=== PATIENT | male | born 1950 | race Caucasian/White ===

== ENCOUNTER 2021-06-16 20:32 | Inpatient (IN) | payer OTHER ==
[2021-06-16] MEDS ORDERED: NA CHLORIDE 0.9% 500 ML ONE (23:35)
[2021-06-16] MEDS ORDERED: FOLIC ACID 5 MG/ML VIAL ONE (23:37)
[2021-06-17 00:06] LABS: Absolute Lymphocytes (CBC) 1.2 K/uL (0.7-4.9); Hematocrit 45.5 % (39.6-49.0); Lymphocytes % 10.6 % (15.3-44.8); RBC Red Blood Cell Count 5.25 M/uL (4.33-5.43)
[2021-06-17 00:07] LABS: Protime INR 0.86
[2021-06-17 00:20] LABS: ALT/SGPT 15 U/L (12-78); AST/SGOT 13 U/L (15-37); Albumin 3.2 g/dL (3.4-5.0); Alkaline Phosphatase 83 U/L (45-117); BUN Blood Urea Nitrogen 12 mg/dL (7-18); Bicarbonate 29 mmol/L (21-32); Bilirubin Direct 0.2 mg/dL (0-0.2); Bilirubin Total 0.8 mg/dL (0.2-1.0); Glucose Level 103 mg/dL (74-106); Lipase 49 U/L (73-393); Magnesium 2.3 mg/dL (1.8-2.4); NT PRO-BNP 2650 pg/mL (<125); Protein, Total 7.5 g/dL (6.4-8.2); Sodium Level 130 mmol/L (136-145); Troponin (Emerg Dept Use Only) < 0.02 ng/mL (0.0-0.045)
--- NOTE | 2021-06-17 00:54 | ER ---
Nurse's Notes [facility] Jonathan Name: Jose Ivy Sr Age: 70 yrs Sex: Male : 1950 Arrival Date: 06/16/2021 Time: 20:36 Bed 3 Private MD: Diagnosis: Dizziness and giddiness;Nausea;Cerebellar stroke syndrome Presentation: 06/16 21:17 Chief complaint: Patient states: pt states that he is continuously dizzy all the time lg3 and all of a sudden "just took a fall". fell took place roughly around 1750. denies tripping over anything. denies hitting head. small abrasion to right elbow and top of right hand. applied non stick dressing to both areas. pt states that he did vomit yesterday due to nausea from not eating due to lack of appetite. Coronavirus screen: Client denies travel out of the [place] in the last 14 days. At this time, the client does not indicate any symptoms associated with coronavirus-19. Ebola Screen: No symptoms or risks identified at this time. Initial Sepsis Screen: Does the patient meet any 2 criteria? No. Patient's initial sepsis screen is negative. Does the patient have a suspected source of infection? No. Patient's initial sepsis screen is negative. Risk Assessment: Do you want to hurt yourself or someone else? Patient reports no desire to harm self or others. Onset of symptoms. 21:17 Method Of Arrival: Wheelchair lg3 21:17 Acuity: EDEN 3 lg3 Triage Assessment: 21:25 General: Appears in no apparent distress. comfortable, Behavior is calm, cooperative. lg3 Pain: Denies pain. Neuro: No deficits noted. Level of Consciousness is awake, alert, obeys commands, Oriented to person, place, time, situation, Contact Lens Manufacturer are equal bilaterally Speech is normal, Facial symmetry appears normal. Cardiovascular: Capillary refill < 3 seconds Patient's skin is warm and dry. Respiratory: Airway is patent Trachea midline Respiratory effort is even, unlabored, Respiratory pattern is regular, symmetrical. GI: No signs and/or symptoms were reported involving the gastrointestinal system. : No signs and/or symptoms were reported regarding the genitourinary system. Derm: Skin is thin, with poor turgor has skin tears on right hand. Musculoskeletal: Injury Description: Abrasion sustained to right elbow. 06/17 01:29 GI: Reports nausea, vomiting. sm5 Historical: - Allergies: 06/16 21:25 No Known Allergies; lg3 - PMHx: 21:25 Heart disease; cva; lg3 - PSHx: 21:25 cardiac stent; lg3 - Immunization history:: Adult Immunizations up to date, Client reports receiving the 2nd dose of the Covid vaccine, Moderna x3. - Social history:: Smoking status: Patient reports the use of cigarette tobacco products, smokes two packs cigarettes per day. Screenin/10 01:28 Abuse screen: Denies threats or abuse. Denies injuries from another. Nutritional sm5 screening: No deficits noted. Tuberculosis screening: No symptoms or risk factors identified. Fall Risk Fall in past 12 months (25 points). Secondary diagnosis (15 points) CVA, IV access (20 points). Ambulatory Aid- None/Bed Rest/Nurse Assist (0 pts). Gait- Normal/Bed Rest/Wheelchair (0 pts) Mental Status- Oriented to own ability (0 pts). Total [place] Fall Scale indicates High Risk Score (45 or more points). Fall prevention measures have been instituted. Side Rails Up X 2 Placed Close to Nursing Station Frequent Obs/Assessments Occuring. 02:16 The patient has not been NPO before screening. The patient is alert, able to follow sm5 commands. The patient does not exhibit slurred or garbled speech The patient is not exhibiting difficulty speaking. The patient does not exhibit difficulty understanding words. The patient is able to swallow own secretions with no drooling or need for suction. Patient tolerated one teaspoon of water. No drooling, immediate coughing, gurgling, or clearing of the throat was noted. The patient tolerated 90mL of water. No drooling, immediate coughing, gurgling, or clearing of the throat was noted. The patient passed the bedside swallow screening. Oral medications may be given as ordered. Contact Physician for further diet orders. Assessment: 06/16 23:30 General: Appears in no apparent distress. Behavior is calm, cooperative. Neuro: No sm5 deficits noted. Level of Consciousness is awake, alert, Oriented to person, place, time, situation. Cardiovascular: No deficits noted. Capillary refill < 3 seconds Patient's skin is warm and dry. Respiratory: No deficits noted. Airway is patent Trachea midline Respiratory effort is even, unlabored. GI: Abdomen is flat, non-distended, Reports vomiting. 06/17 00:30 Reassessment: No changes from previously documented assessment. Patient and/or family 5 updated on plan of care and expected duration. Pain level reassessed. Patient is alert, oriented x 3, equal unlabored respirations, skin warm/dry/pink. 01:31 Reassessment: No changes from previously documented assessment. 5 Vital Signs: 06/16 21:17 BP 165 / 62; Pulse 67; Resp 16; Temp 98.3; Pulse Ox 99% on R/A; Weight 68.04 kg (R); lg3 Height 5 ft. 9 in. (175.26 cm) (R); Pain 0/10; 23:30 BP 182 / 81; Pulse 63; Resp 19; Pulse Ox 98% on R/A; sm5 06/17 00:30 BP 181 / 70; Pulse 69; Resp 20; Pulse Ox 97% on R/A; sm5 00:30 BP 166 / 93; Pulse 66; Resp 19; Pulse Ox 95% ; sm5 06/16 21:17 Body Mass Index 22.15 (68.04 kg, 175.26 cm) lg3 Avril Coma Score: 06/16 23:31 Eye Response: spontaneous(4). Verbal Response: oriented(5). Motor Response: obeys sm5 commands(6). Total: 15. 06/17 00:30 Eye Response: spontaneous(4). Verbal Response: oriented(5). Motor Response: obeys sm5 commands(6). Total: 15. NIH Stroke Scale Scores: 06/16 23:27 NIHSS Score: 0 sundeep 06/17 02:16 NIHSS Score: 0 5 ED Course: 06/16 20:36 Patient arrived in ED. bp1 21:25 Triage completed. lg3 21:25 Arm band placed on Patient notified of wait time. Bandage applied. lg3 22:57 Nikhil Fontana MD is Attending Physician. sundeep 23:26 Valorie Parra, LASHAWN is Primary Nurse. sm5 23:40 Inserted saline lock: 20 gauge in left antecubital area, using aseptic technique. Blood sm5 collected. 23:47 XRAY Chest (1 view) Sent. tw5 23:47 Basic Metabolic Panel Sent. tw5 23:47 LFT's Sent. 23:47 CBC with Diff Sent. 23:47 Magnesium Sent. 23:47 NT PRO-BNP Sent. 23:47 PT-INR Sent. 23:47 Troponin (emerg Dept Use Only) Sent. 06/17 00:10 XRAY Chest (1 view) In Process Unspecified. EDMS 00:44 US Carotid Artery Bilateral In Process Unspecified. EDMS 00:52 Herman Schilling MD is Hospitalizing Provider. sundeep 01:10 CT Head Brain wo Cont In Process Unspecified. EDMS 01:29 Patient has correct armband on for positive identification. Bed in low position. Call [facility] light in reach. Side rails up X2. 01:29 No provider procedures requiring assistance completed. [facility] 07:28 Primary Nurse role handed off by Valorie Parra RN 07:32 Jewel Breen, LASHAWN is Primary Nurse. jd3 Administered Medications: 06/16 23:46 Drug: NS 0.9% 1000 ml Route: IV; Rate: 125 ml/hr; Site: left antecubital; 23:47 Drug: NS 0.9% 500 ml Route: IV; Rate: bolus; Site: left antecubital; tw 23:50 Follow up: IV Status: Completed infusion; IV Intake: 500ml 5 23:47 Drug: foLIC Acid 1 mg Route: IVPB; Site: left antecubital; tw06/17 00:00 Follow up: IV Status: Completed infusion; IV Intake: 0.2ml [facility] 02:14 Drug: Aspirin Chewable Tablet 162 mg Route: PO; 5 03:02 Drug: PlaVIX (clopidogrel) 75 mg Route: PO; 5 Intake: 06/16 23:50 IV: 500ml; Total: 500ml. 5 06/17 00:00 IV: 0ml; Total: 500ml. [facility] Outcome: 00:53 Decision to Hospitalize by Provider. sundeep 10:21 Patient left the ED. jd3 NIH Stroke Scale - NIH Stroke Score Date: 06/16/2021 Time: 23:27 Total Score = 0 1a. Level of Consciousness (LOC) - 0(Alert) 1b. Level of Consciousness (LOC) (Month \\T\\ Age) - 0(Both) 1c. LOC Commands (Open \\T\\ Closes Eyes/Automobile Tester) - 0(Both) 2. Best Gaze (Lateral Gaze Paresis) - 0(Normal) 3. Visual Field Loss - 0(No visual loss) 4. Facial Palsy - 0(Normal) 5a. Left Arm: Motor (10-second hold) - 0(No drift) 5b. Right Arm: Motor (10-second hold) - 0(No drift) 6a. Left Leg: Motor (5-second hold - always test supine) - 0(No drift) 6b. Right Leg: Motor (5-second hold - always test supine) - 0(No drift) 7. Limb Ataxia (finger/nose \\T\\ heel/garay - test with eyes open) - 0(Absent) 8. Sensory Loss (pinprick arms/legs/face) - 0(Normal) 9. Best Language: Aphasia (description/naming/reading) - 0(No aphasia) 10. Dysarthria (speech clarity - read or repeat words) - 0(Normal) 11. Extinction and Inattention (visual/tactile/auditory/spatial/personal) - 0(No abnormality) Initials: [facility] NIH Stroke Scale - NIH Stroke Score Date: 06/17/2021 Time: 02:16 Total Score = 0 1a. Level of Consciousness (LOC) - 0(Alert) 1b. Level of Consciousness (LOC) (Month \\T\\ Age) - 0(Both) 1c. LOC Commands (Open \\T\\ Closes Eyes/Automobile Tester) - 0(Both) 2. Best Gaze (Lateral Gaze Paresis) - 0(Normal) 3. Visual Field Loss - 0(No visual loss) 4. Facial Palsy - 0(Normal) 5a. Left Arm: Motor (10-second hold) - 0(No drift) 5b. Right Arm: Motor (10-second hold) - 0(No drift) 6a. Left Leg: Motor (5-second hold - always test supine) - 0(No drift) 6b. Right Leg: Motor (5-second hold - always test supine) - 0(No drift) 7. Limb Ataxia (finger/nose \\T\\ heel/garay - test with eyes open) - 0(Absent) 8. Sensory Loss (pinprick arms/legs/face) - 0(Normal) 9. Best Language: Aphasia (description/naming/reading) - 0(No aphasia) 10. Dysarthria (speech clarity - read or repeat words) - 0(Normal) 11. Extinction and Inattention (visual/tactile/auditory/spatial/personal) - 0(No abnormality) Initials: sm5 Signatures: Dispatcher [employer] Qian Wen Corey, MD MD cha Davies, Jonathon RN RN Emilee Stearns RN RN lg3 Jacquie Helms Tiffany 5 Valorie Parra RN RN sm5 Corrections: (The following items were deleted from the chart) 06/16 21:28 21:25 PMHx: cardiac stent; lg3 lg3
--- NOTE | 2021-06-17 00:54 | EDPHYS ---
Physician Documentation [facility] Jonathan Name: Jose Ivy Sr Age: 70 yrs Sex: Male : 1950 Arrival Date: 06/16/2021 Time: 20:36 Bed 3 Private MD: MYRIAM Physician Nikhil Fontana HPI: 06/16 23:26 This 70 yrs old Male presents to ER via Wheelchair with complaints of sundeep Vomiting, Recent falls. 23:26 The patient presents to the emergency department with nausea, that is mild. Onset: The sundeep symptoms/episode began/occurred 3 day(s) ago. Possible causes: unknown. Historical: - Allergies: 21:25 No Known Allergies; lg3 - PMHx: 21:25 Heart disease; cva; lg3 - PSHx: 21:25 cardiac stent; lg3 - Immunization history:: Adult Immunizations up to date, Client reports receiving the 2nd dose of the Covid vaccine, Moderna x3. - Social history:: Smoking status: Patient reports the use of cigarette tobacco products, smokes two packs cigarettes per day. ROS: 23:27 Constitutional: Negative for fever, chills, and weight loss, Eyes: Negative for injury, sundeep pain, redness, and discharge, ENT: Negative for injury, pain, and discharge, Neck: Negative for injury, pain, and swelling, Cardiovascular: Negative for chest pain, palpitations, and edema, Respiratory: Negative for shortness of breath, cough, wheezing, and pleuritic chest pain, Abdomen/GI: Negative for abdominal pain, nausea, vomiting, diarrhea, and constipation, Back: Negative for injury and pain, : Negative for injury, bleeding, discharge, and swelling, MS/Extremity: Negative for injury and deformity, Skin: Negative for injury, rash, and discoloration, Psych: Negative for depression, anxiety, suicide ideation, homicidal ideation, and hallucinations, Allergy/Immunology: Negative for hives, rash, and allergies, Endocrine: Negative for neck swelling, polydipsia, polyuria, polyphagia, and marked weight changes, Hematologic/Lymphatic: Negative for swollen nodes, abnormal bleeding, and unusual bruising. 23:27 Neuro: Positive for dizziness, gait disturbance, weakness. Exam: 23:27 Constitutional: This is a well developed, well nourished patient who is awake, alert, sundeep and in no acute distress. Head/Face: Normocephalic, atraumatic. Eyes: Pupils equal round and reactive to light, extra-ocular motions intact. Lids and lashes normal. Conjunctiva and sclera are non-icteric and not injected. Cornea within normal limits. Periorbital areas with no swelling, redness, or edema. ENT: Nares patent. No nasal discharge, no septal abnormalities noted. Tympanic membranes are normal and external auditory canals are clear. Oropharynx with no redness, swelling, or masses, exudates, or evidence of obstruction, uvula midline. Mucous membranes moist. Neck: Trachea midline, no thyromegaly or masses palpated, and no cervical lymphadenopathy. Supple, full range of motion without nuchal rigidity, or vertebral point tenderness. No Meningismus. Chest/axilla: Normal chest wall appearance and motion. Nontender with no deformity. No lesions are appreciated. Cardiovascular: Regular rate and rhythm with a normal S1 and S2. No gallops, murmurs, or rubs. Normal PMI, no JVD. No pulse deficits. Respiratory: Lungs have equal breath sounds bilaterally, clear to auscultation and percussion. No rales, rhonchi or wheezes noted. No increased work of breathing, no retractions or nasal flaring. Abdomen/GI: Soft, non-tender, with normal bowel sounds. No distension or tympany. No guarding or rebound. No evidence of tenderness throughout. Back: No spinal tenderness. No costovertebral tenderness. Full range of motion. Male : Normal genitalia with no discharge or lesions. Skin: Warm, dry with normal turgor. Normal color with no rashes, no lesions, and no evidence of cellulitis. MS/ Extremity: Pulses equal, no cyanosis. Neurovascular intact. Full, normal range of motion. Neuro: Awake and alert, GCS 15, oriented to person, place, time, and situation. Cranial nerves II-XII grossly intact. Motor strength 5/5 in all extremities. Sensory grossly intact. Cerebellar exam normal. Normal gait. Psych: Awake, alert, with orientation to person, place and time. Behavior, mood, and affect are within normal limits. 23:39 ECG was reviewed by the Attending Physician. [facility] Vital Signs: 21:17 BP 165 / 62; Pulse 67; Resp 16; Temp 98.3; Pulse Ox 99% on R/A; Weight 68.04 kg (R); lg3 Height 5 ft. 9 in. (175.26 cm) (R); Pain 0/10; 23:30 BP 182 / 81; Pulse 63; Resp 19; Pulse Ox 98% on R/A; sm5 06/17 00:30 BP 181 / 70; Pulse 69; Resp 20; Pulse Ox 97% on R/A; sm5 00:30 BP 166 / 93; Pulse 66; Resp 19; Pulse Ox 95% ; sm5 06/16 21:17 Body Mass Index 22.15 (68.04 kg, 175.26 cm) lg3 NIH Stroke Scale Scores: 06/16 23:27 NIHSS Score: 0 sundeep 06/17 02:16 NIHSS Score: 0 sm5 [place] Coma Score: 06/16 23:31 Eye Response: spontaneous(4). Verbal Response: oriented(5). Motor Response: obeys sm5 commands(6). Total: 15. 06/17 00:30 Eye Response: spontaneous(4). Verbal Response: oriented(5). Motor Response: obeys sm5 commands(6). Total: 15. MDM: 06/16 22:57 Patient medically screened. sundeep 23:35 Differential diagnosis: gastritis. Differential diagnosis: cardiac arrhythmia, CVA, sundeep generalized weakness, hypovolemia, idiopathic dizziness, near-syncope, sepsis, syncope, TIA, vertigo. Data reviewed: vital signs, nurses notes, lab test result(s), EKG, radiologic studies, CT scan, doppler, plain films. Data interpreted: hall monitor: rate is 67 beats/min, rhythm is regular, Pulse oximetry: on room air is 99 %. Test interpretation: by ED physician or midlevel provider: ECG, plain radiologic studies. Counseling: I had a detailed discussion with the patient and/or guardian regarding: the historical points, exam findings, and any diagnostic results supporting the discharge/admit diagnosis, lab results, radiology results, the need for further work-up and treatment in the hospital. 06/16 23:24 Order name: Basic Metabolic Panel; Complete Time: 00:47 sundeep 06/16 23:24 Order name: CBC with Diff; Complete Time: 00:47 sundeep 06/16 23:24 Order name: LFT's; Complete Time: 00:47 sundeep 06/16 23:24 Order name: Magnesium; Complete Time: 00:47 [facility] 06/16 23:24 Order name: NT PRO-BNP; Complete Time: 00:47 [facility] 06/16 23:24 Order name: PT-INR; Complete Time: 00:47 [facility] 06/16 23:24 Order name: Troponin (emerg Dept Use Only); Complete Time: 00:47 [facility] 06/16 23:24 Order name: XRAY Chest (1 view) [facility] 06/16 23:24 Order name: Lipase; Complete Time: 00:47 [facility] 06/16 23:24 Order name: CT Head Brain wo Cont [facility] 06/16 23:24 Order name: US Carotid Artery Bilateral [facility] 06/17 02:01 Order name: CT Head Angio [facility] 06/17 02:22 Order name: COVID-19/FLU A+B/RSV (Document "Date of Onset" if Symptomatic) cs9 06/17 03:10 Order name: Urine Dipstick-Ancillary EDMS 06/16 23:24 Order name: EKG; Complete Time: 23:25 [facility] 06/16 23:24 Order name: Cardiac monitoring; Complete Time: 23:26 [facility] 06/16 23:24 Order name: EKG - Nurse/Tech; Complete Time: 23:26 [facility] 06/16 23:24 Order name: IV Saline Lock; Complete Time: 23:26 [facility] 06/16 23:24 Order name: Labs collected and sent; Complete Time: 23:47 [facility] 06/16 23:24 Order name: O2 Per Protocol; Complete Time: 23:26 [facility] 06/16 23:24 Order name: O2 Sat Monitoring; Complete Time: 23:26 [facility] 06/17 02:01 Order name: CT Neck Angio [facility] 06/17 08:48 Order name: CT EDMS EC:39 Rate is 74 beats/min. Rhythm is regular. QRS [place] is Normal. MS interval is normal. QRS sundeep interval is normal. QT interval is normal. No Q waves. T waves are Normal. No ST changes noted. Clinical impression: NSR w/ Non-specific ST/T Changes and No evidence of ischemia. Interpreted by me. Reviewed by me. Administered Medications: 23:46 Drug: NS 0.9% 1000 ml Route: IV; Rate: 125 ml/hr; Site: left antecubital; tw5 23:47 Drug: NS 0.9% 500 ml Route: IV; Rate: bolus; Site: left antecubital; tw5 23:50 Follow up: IV Status: Completed infusion; IV Intake: 500ml 5 23:47 Drug: foLIC Acid 1 mg Route: IVPB; Site: left antecubital; tw5 06/17 00:00 Follow up: IV Status: Completed infusion; IV Intake: 0.2ml 5 02:14 Drug: Aspirin Chewable Tablet 162 mg Route: PO; sm5 03:02 Drug: PlaVIX (clopidogrel) 75 mg Route: PO; 5 Disposition Summary: 06/17/21 00:53 Hospitalization Ordered Hospitalization Status: Observation sundeep Provider: Herman Schilling cha Condition: Fair sundeep Problem: new sundeep Symptoms: have improved sundeep Bed/Room Type: Standard sundeep Location: Telemetry/MedSurg (observation)(06/17/21 09:05) bd Room Assignment: 203(06/17/21 09:05) bd Diagnosis - Dizziness and giddiness sundeep - Nausea sundeep - Cerebellar stroke syndrome sundeep Forms: - Medication Reconciliation Form sundeep - SBAR form sundeep NIH Stroke Scale - NIH Stroke Score Date: 06/16/2021 Time: 23:27 Total Score = 0 1a. Level of Consciousness (LOC) - 0(Alert) 1b. Level of Consciousness (LOC) (Month \\T\\ Age) - 0(Both) 1c. LOC Commands (Open \\T\\ Closes Eyes/Component Assembler Supervisor) - 0(Both) 2. Best Gaze (Lateral Gaze Paresis) - 0(Normal) 3. Visual Field Loss - 0(No visual loss) 4. Facial Palsy - 0(Normal) 5a. Left Arm: Motor (10-second hold) - 0(No drift) 5b. Right Arm: Motor (10-second hold) - 0(No drift) 6a. Left Leg: Motor (5-second hold - always test supine) - 0(No drift) 6b. Right Leg: Motor (5-second hold - always test supine) - 0(No drift) 7. Limb Ataxia (finger/nose \\T\\ heel/garay - test with eyes open) - 0(Absent) 8. Sensory Loss (pinprick arms/legs/face) - 0(Normal) 9. Best Language: Aphasia (description/naming/reading) - 0(No aphasia) 10. Dysarthria (speech clarity - read or repeat words) - 0(Normal) 11. Extinction and Inattention (visual/tactile/auditory/spatial/personal) - 0(No abnormality) Initials: sundeep NIH Stroke Scale - NIH Stroke Score Date: 06/17/2021 Time: 02:16 Total Score = 0 1a. Level of Consciousness (LOC) - 0(Alert) 1b. Level of Consciousness (LOC) (Month \\T\\ Age) - 0(Both) 1c. LOC Commands (Open \\T\\ Closes Eyes/Component Assembler Supervisor) - 0(Both) 2. Best Gaze (Lateral Gaze Paresis) - 0(Normal) 3. Visual Field Loss - 0(No visual loss) 4. Facial Palsy - 0(Normal) 5a. Left Arm: Motor (10-second hold) - 0(No drift) 5b. Right Arm: Motor (10-second hold) - 0(No drift) 6a. Left Leg: Motor (5-second hold - always test supine) - 0(No drift) 6b. Right Leg: Motor (5-second hold - always test supine) - 0(No drift) 7. Limb Ataxia (finger/nose \\T\\ heel/garay - test with eyes open) - 0(Absent) 8. Sensory Loss (pinprick arms/legs/face) - 0(Normal) 9. Best Language: Aphasia (description/naming/reading) - 0(No aphasia) 10. Dysarthria (speech clarity - read or repeat words) - 0(Normal) 11. Extinction and Inattention (visual/tactile/auditory/spatial/personal) - 0(No abnormality) Initials: sm5 Signatures: Dispatcher [employer] EDQian Mancini Corey, MD MD cha Attema, Lee, AUTOBODY TECHNICIAN-C AUTOBODY TECHNICIAN-Cla1 Lyndsey Oglesby, RN RN Emilee Peterson RN RN lg3 Kitty Nettles 5 Valorie Parra, RN RN sm5 Corrections: (The following items were deleted from the chart) 06/16 21:28 21:25 PMHx: cardiac stent; lg3 lg3 06/17 03:05 00:53 Telemetry/MedSurg (observation) sundeep cg 03:05 00:53 sundeep cg 09:05 03:05 [facility] ER HOLD bd 09:05 03:05 ERHOLD- cg bd
[2021-06-17] MEDS ORDERED: ASPIRIN 81 MG CHEWABLE TABLET ONE (02:07)
[2021-06-17] MEDS ORDERED: CLOPIDOGREL 75 MG TABLET ONE ×2 (03:00→08:57)
[2021-06-17 03:10] LABS: Urine Blood Negative (Negative); Urine Glucose Trace (Negative); Urine Protein Negative (Negative)
--- NOTE | 2021-06-17 03:13 | P.HP ---
Certification for Inpatient Patient admitted to: Inpatient With expected LOS: >2 Midnights Patient will require the following post-hospital care: None Practitioner: I am a practitioner with admitting privileges, knowledge of patient current condition, hospital course, and medical plan of care. Services: Services provided to patient in accordance with Admission requirements found in Title 42 Section 412.3 of the Code of Federal Regulations Patient History Date of Service: 06/17/21 Reason for admission: Subacute CVA History of Present Illness: 70-year-old male with history of CAD, hypertension, GERD presents emergency department for dizziness, nausea over the course of the last 3 days. Patient reports needing to use a walker for stability. Labs were significant for sodium 130 chloride 96 BNP [address] head brain without contrast demonstrates focal area of hypodensity within the right cerebellar hemisphere suspicious for acute/subacute infarct within the distribution of the right posterior circulation suggest MRI for further evaluation mild brain atrophy and minimal periventricular white matter changes of microvascular ischemia. Patient on aspirin, Plavix at home for CAD. NIH is 0, patient reports that he feels dizzy almost exclusively with ambulation. Emergency department provider wishes to admit for further evaluation and management of acute/subacute ischemic CVA Allergies No Known Allergies Allergy (Unverified 06/17/21 04:11) - Past Medical/Surgical History -: CAD -: Hypertension -: GERD -: Heart catheterization Psychosocial/ Personal History: Patient is retired, lives at home alone - Family History Brother -: Stroke - Social History Smoking Status: Current every day smoker Counseled patient to stop smoking for: less than 10 minutes Smoking therapy provided: Yes Alcohol use: Yes CD- Drugs: No Place of Residence: Home Review of Systems 10-point ROS is otherwise unremarkable Gastrointestinal: Nausea, Vomiting Neurological: Other (Dizziness) Physical Examination - Physical Exam General: Alert, In no apparent distress, Oriented x3 HEENT: Atraumatic, PERRLA, Mucous membr. moist/pink, EOMI, Sclerae nonicteric Neck: Supple, 2+ carotid pulse no bruit, No LAD, Without JVD or thyroid abnormality Respiratory: Clear to auscultation bilaterally, Normal air movement Cardiovascular: Regular rate/rhythm, Normal S1 S2 Capillary refill: <2 Seconds Gastrointestinal: Normal bowel sounds, No tenderness Musculoskeletal: No tenderness Integumentary: No rashes Neurological: Normal gait, Normal speech, Normal strength at 5/5 x4 extr, Normal tone, Normal affect - Studies Laboratory Data (last 24 hrs) 06/16/21 23:29: PT 9.9, INR 0.86 06/16/21 23:29: WBC 11.00 H, Hgb 15.3, Hct 45.5, Plt Count 220 06/16/21 23:29: Sodium 130 L, Potassium 4.0, BUN 12, Creatinine 0.89, Glucose 103, Magnesium 2.3, Total Bilirubin 0.8, AST 13 L, ALT 15, Alkaline Phosphatase 83, Lipase 49 L Assessment and Plan - Plan Assessment: Acute/subacute right cerebellar ischemic CVA Hypertension CAD Mild hyponatremia Incidental CT finding right upper lobe Plan: Acute/subacute right cerebellar ischemic CVA: Neurology consulted, will obtain MRI stroke protocol, echocardiogram, carotid Doppler. Continue aspirin, Plavix, beta-jed, folic acid. Physical therapy consult in place. Patient did pass bedside swallow screening has no difficulty with speech or swallowing at this time. Appreciate further input from neurology patient counseled on need for cessation of smoking and better control of blood pressure. Hypertension: Obtaining continue medication, will allow for some permissive hypertension now given acute/subacute CVA. CAD: Continue aspirin, Plavix and other home medications Mild hyponatremia: We will give slow IV hydration, recheck daily. Incidental CT finding right upper lobe: Radiology recommends dedicated CT chest, will obtain CT chest noncontrast. DVT PPX: Lovenox Code status: Full Discharge Plan: Home Plan to discharge in: Greater than 2 days - Advance Directives Does patient have a Living Will: No Does patient have a Durable POA for Healthcare: No - Code Status/Comfort Care Code Status Assessed: Yes (Full code) Critical Care: No Time Spent Managing Pts Care (In Minutes): 55
[2021-06-17 04:04] LABS: SARS-COV-2 RT PCR NEGATIVE (NEGATIVE)
[2021-06-17] MEDS ORDERED: ONDANSETRON 4 MG/2 ML VIAL IV PRN (04:11)
[2021-06-17] MEDS ORDERED: HYDROCODONE/APAP 5/325 MG TAB PO PRN (04:11)
[2021-06-17] MEDS ORDERED: NICOTINE 21 MG/PAT TD PRN (04:11)
[2021-06-17 05:12] VITALS: BMI 22.1
[2021-06-17] MEDS ORDERED: PNEUMOCOCCAL VACCINE 0.5 ML IMVAC ONE (08:00)
--- NOTE | 2021-06-17 08:27 | RAD REPORT ---
EXAM DESCRIPTION: USCarotid Artery Bilateral06/17/2021 12:44 am CLINICAL HISTORY: Dizziness and headache COMPARISON: None FINDINGS: The velocity of the right internal carotid artery equals 65 cm/sec. The right ICA/CCA rati o 1 The velocity of the left internal carotid artery equals 116 cm/sec. The left ICA/CCA ratio 1.6 Mild plaque is present within the carotid arteries. The vertebral arteries demonstrate antegrade flow IMPRESSION: Mild plaque within the carotid arteries without evidence of a hemodynamically significan t stenosis NASCET criteria used. Mild 0-49% stenosis Moderate 50-69% stenosis Severe 70-99% stenosis
--- NOTE | 2021-06-17 08:47 | RAD REPORT ---
EXAM DESCRIPTION: CT - Thorax Wo Con - 06/17/2021 5:17 am CLINICAL HISTORY: Lung mass COMPARISON: CT June 17, 2021 TECHNIQUE: Computed axial tomography of the chest was obtained. Contrast was not requested. All CT scans are performed using dose optimization technique as appropriate and may include automated exposure control or mA/KV adjustment according to patient size. FINDINGS: The evaluation of mediastinum, elliot and vessels is limited secondary to lack of IV contras t administration. 4.7 centimeter cavitary mass right upper lobe. Several small spiculated opacities right upper lobe. Mild tree-in-bud opacities right upper lobe. Areas of scarring or subsegmental atelectasis is suspected within the left lower lobe. COPD Several borderline enlarged right hilar and mediastinal lymph nodes. No pleural effusion. Small pericardial effusion. Coronary arterial calcifications. IMPRESSION: A 4.7 centimeter cavitary mass right upper lobe may represent infection such as TB/funga l, neoplasm or probably less likely inflammation. Additional smaller spiculated opacities the right upper lobe probably have a similar etiology. Mild tree-in-bud opacities right upper lobe may indicate an atypical pneumonia. Small pericardial effusion
--- NOTE | 2021-06-17 08:48 | RAD REPORT ---
EXAM DESCRIPTION: [place] Single View06/17/2021 12:04 am CLINICAL HISTORY: Cough COMPARISON: none FINDINGS: A 4.7 centimeter cavitary mass right upper lobe. Additional small spiculated opacities ri ght upper lobe. Mild reticulonodular opacities right lung. Mild scarring or subsegmental axis left lung base. Left pleural thickening. Heart is normal size IMPRESSION: 4.7 centimeter cavitary mass right upper lobe with additional small spiculated opacitie s right upper lobe may represent infection such as TB/fungal. Neoplasm is another consideration. Mild reticulonodular opacities right lung may indicate an atypical infection
[2021-06-17] MEDS ORDERED: FOLIC ACID 1 MG TABLET ONE (08:56)
[2021-06-17] MEDS ORDERED: METOPROLOL TAR 25 MG TAB ONE (08:56)
[2021-06-17] MEDS ORDERED: ASPIRIN EC 81 MG TAB PO ONE (08:56)
[2021-06-17] MEDS ORDERED: NA CHLORIDE 0.9% 1,000 ML ONE (08:57)
[2021-06-17] MEDS ORDERED: ENOXAPARIN 40 MG/0.4 ML SQ ONE (08:57)
[2021-06-17] MEDS: CLOPIDOGREL 75 MG TABLET PO SCH (09:00)
[2021-06-17] MEDS: FOLIC ACID 1 MG TABLET PO SCH (09:00)
[2021-06-17] MEDS: NA CHLORIDE 0.9% 1,000 ML IV SCH ×2 (09:00→17:31)
[2021-06-17] MEDS: ENOXAPARIN 40 MG/0.4 ML SQ SCH (09:00)
[2021-06-17] MEDS: METOPROLOL TAR 25 MG TAB PO SCH ×2 (09:00→18:00)
[2021-06-17] MEDS: ASPIRIN EC 81 MG TAB PO SCH (09:00)
--- NOTE | 2021-06-17 11:51 | RAD REPORT ---
EXAM DESCRIPTION: CT - Head Brain Wo Cont - 06/17/2021 5:46 am CLINICAL HISTORY: 70 years, Male, DIZZINESS COMPARISON: None. FINDINGS: Multiple transaxial tomograms of the brain were obtained from the base of the skull to the vertex without contrast. 2-D multiplanar reformats and the coronal and sagittal plane were performed and reviewed. This exam was performed according to our departmental dose-optimization protocol, which includes auto mated exposure control, adjustment of the mA and/or kV according to patient size and/or use of iterat diego reconstruction technique. Brain parenchyma demonstrate mild prominence of the sulci and gyri are corresponding to mild brain at rophy. There is minimal periventricular white matter changes of microvascular ischemia. There is a fo caesar area of hypodensity within the right cerebellar hemisphere suspicious for perhaps acute-subacute infarct within the distribution of the right posterior circulation. There is no midline shift and/or mass effect. There is no evidence for acute intracranial hemorrhage. There are vascular calcification s within the cavernous sinus and posterior circulation. Lateral ventricles and cisterns displace no rmal appearance. No intra or extra axial fluid collections were seen. The calvarium is intact with no evidence for fracture. The visualized portions of the paranasal sinuses demonstrate opacification/ mucosal thickening of the bilateral maxillary sinuses. The mastoid air cells and orbits demonstrate t o be clear. IMPRESSION: Focal area of hypodensity within the right cerebellar hemisphere suspicious for perhaps acute-subacute infarct within the distribution of the right posterior circulation. Further evaluation with MRI could be of assistance. No evidence for acute intracranial hemorrhage. Mild brain atrophy and minimal periventricular white matter changes of microvascular ischemia. Bilateral maxillary sinus disease. Electronically signed by: Shorty Swan MD 06/17/2021 1:21 AM SWITCHING CLERK Due to temporary technical issues with the PACS/Fluency reporting system, reports are being signed by the in house radiologist without review as a courtesy to ensure prompt reporting. The interpreting r adiologist is fully responsible for the content of the report.
--- NOTE | 2021-06-17 12:15 | RAD REPORT ---
EXAM DESCRIPTION: [place] Angio06/17/2021 5:48 am CLINICAL HISTORY: DIZZINESS COMPARISON: None. TECHNIQUE: CT HEAD ANGIOGRAPHY WITH IV CONTRAST, CT NECK ANGIOGRAPHY WITH IV CONTRAST on 06/17/2021 2 :01 AM CORKING MACHINE OPERATOR This exam was performed according to our departmental dose-optimization program, which includes autom ated exposure control, adjustment of the mA and/or kV according to patient size and/or use of iterati ve reconstruction technique. MIP reconstructions were generated. Stenoses are calculated by NASCET criteria. FINDINGS: The visualized aortic arch and origins of the great vessels unremarkable. The common carotid arteries are patent and symmetric bilaterally. No hemodynamically significant stenosis is observed at the common carotid bifurcations or origins of the internal carotid arteries bilaterally. There are scattered calcifications of the proximal interna l carotid arteries. Vertebral arteries are unremarkable without evidence of pseudoaneurysm, hemodynamically significant s tenosis, or dissection. Intracranially the cavernous segments of the internal carotid arteries are patent and symmetric bilat erally. Vertebral basilar system within normal limits for age, other than possible short segment fenestration of the basilar artery. No aneurysm identified within the [place] of [place]. Anterior, middle, and posterior cerebral circulations are patent and symmetric bilaterally. Dural sinuses are well opacified and without filling defect. There is an incompletely assessed at least 1.7 cm spiculated right upper lobe nodule. IMPRESSION: Unremarkable CT angiogram of the neck for age without dissection or hemodynamically sign ificant stenosis. Unremarkable CTA of the brain without evidence of hemodynamically significant stenosis, aneurysm or A VM. 1.7 cm spiculated, incompletely assessed nodule within the right upper lobe of the lungs. Recommend d edicated chest CT. CAROTID STENOSIS REFERENCE USING NASCET CRITERIA: % ICA stenosis = (1 - narrowest ICA diameter/diameter of distal cervical ICA) x 100. Mild - <50% stenosis. Moderate - 50-69% stenosis. Severe - 70-94% stenosis. Near occlusion - 95-99% stenosis. Occluded - 100% stenosis. Electronically signed by: Judson Ji MD 06/17/2021 4:36 AM CORKING MACHINE OPERATOR Due to temporary technical issues with the PACS/Fluency reporting system, reports are being signed by the in house radiologist without review as a courtesy to ensure prompt reporting. The interpreting r adiologist is fully responsible for the content of the report.
[2021-06-17] MEDS ORDERED: AMLODIPINE 5 MG TAB PO ONE (12:17)
--- NOTE | 2021-06-17 12:22 | RAD REPORT ---
EXAM DESCRIPTION: CTHead angio06/17/2021 5:48 am CLINICAL HISTORY: DIZZINESS COMPARISON: None. TECHNIQUE: CT HEAD ANGIOGRAPHY WITH IV CONTRAST, CT NECK ANGIOGRAPHY WITH IV CONTRAST on 06/17/2021 2 :01 AM PAIRER ODDS This exam was performed according to our departmental dose-optimization program, which includes autom ated exposure control, adjustment of the mA and/or kV according to patient size and/or use of iterati ve reconstruction technique. MIP reconstructions were generated. Stenoses are calculated by NASCET criteria. FINDINGS: The visualized aortic arch and origins of the great vessels unremarkable. The common carotid arteries are patent and symmetric bilaterally. No hemodynamically significant stenosis is observed at the common carotid bifurcations or origins of the internal carotid arteries bilaterally. There are scattered calcifications of the proximal interna l carotid arteries. Vertebral arteries are unremarkable without evidence of pseudoaneurysm, hemodynamically significant s tenosis, or dissection. Intracranially the cavernous segments of the internal carotid arteries are patent and symmetric bilat erally. Vertebral basilar system within normal limits for age, other than possible short segment fenestration of the basilar artery. No aneurysm identified within the [place] of [place]. Anterior, middle, and posterior cerebral circulations are patent and symmetric bilaterally. Dural sinuses are well opacified and without filling defect. There is an incompletely assessed at least 1.7 cm spiculated right upper lobe nodule. IMPRESSION: Unremarkable CT angiogram of the neck for age without dissection or hemodynamically sign ificant stenosis. Unremarkable CTA of the brain without evidence of hemodynamically significant stenosis, aneurysm or A VM. 1.7 cm spiculated, incompletely assessed nodule within the right upper lobe of the lungs. Recommend d edicated chest CT. CAROTID STENOSIS REFERENCE USING NASCET CRITERIA: % ICA stenosis = (1 - narrowest ICA diameter/diameter of distal cervical ICA) x 100. Mild - <50% stenosis. Moderate - 50-69% stenosis. Severe - 70-94% stenosis. Near occlusion - 95-99% stenosis. Occluded - 100% stenosis. Electronically signed by: Judson Ji MD 06/17/2021 4:36 AM PAIRER ODDS Due to temporary technical issues with the PACS/Fluency reporting system, reports are being signed by the in house radiologist without review as a courtesy to ensure prompt reporting. The interpreting r adiologist is fully responsible for the content of the report.
--- NOTE | 2021-06-17 18:42 | P.PN ---
Subjective Date of Service: 06/17/21 Subjective: No new changes, No C/O voiced, Improving Review of Systems 10-point ROS is otherwise unremarkable Physical Examination - Vital Signs Temperature: 98.3 F Blood Pressure: 138/60 Pulse: 61 Respirations: 18 Pulse Ox (%): 98 - Physical Exam General: Alert, In no apparent distress HEENT: Atraumatic, PERRLA, EOMI Neck: Supple, JVD not distended Respiratory: Clear to auscultation bilaterally, Normal air movement Cardiovascular: Regular rate/rhythm, Normal S1 S2 Gastrointestinal: Normal bowel sounds, No tenderness Musculoskeletal: No tenderness Integumentary: No rashes Neurological: Normal speech, Normal tone, Normal affect Lymphatics: No axilla or inguinal lymphadenopathy - Studies Laboratory Data (last 24 hrs) 06/16/21 23:29: PT 9.9, INR 0.86 06/16/21 23:29: WBC 11.00 H, Hgb 15.3, Hct 45.5, Plt Count 220 06/16/21 23:29: Sodium 130 L, Potassium 4.0, BUN 12, Creatinine 0.89, Glucose 103, Magnesium 2.3, Total Bilirubin 0.8, AST 13 L, ALT 15, Alkaline Phosphatase 83, Lipase 49 L Medications List Reviewed: Yes Assessment & Plan - Problems (Diagnosis) (1) Acute CVA (cerebrovascular accident) Current Visit: Yes Status: Acute - Advance Directives Does patient have a Living Will: No Does patient have a Durable POA for Healthcare: No
[2021-06-17] MEDS ORDERED: HYDRALAZINE HCL 20 MG/ML VIAL IV PRN (20:47)
[2021-06-17] MEDS ORDERED: ATORVASTATIN 40 MG TAB PO SCH (21:00)
--- NOTE | 2021-06-17 22:29 | CON ---
Reason For Consultation: Consultation called because of stroke. History Of Present Illness: Mr. Ivy is a 70-year-old patient with coronary artery disease , hypertension, gastroesophageal reflux disease, cardiac catheterization, long history of tobacco and alcohol use, who comes to the hospital with 2 to 3 weeks of balance problems and dizziness, requirin g him to ambulate with an assistive device either cane or walker because of the potential for falls. At [facility], his head CT scan identified an area of possible subacute stroke involving th e right cerebellum and the patient's MRI of the brain is pending, and his CT angiogram showed no evid ence of intracerebral stenosis or aneurysm. However, as the study was done, identified a 1.7 cm spic ulated mass in the upper lobe of his lungs, and CT of the chest identified a 4.7 cm cavitary mass in the right upper lobe. There were small spiculated opacities in the right upper lobe as well and ____ opacification of the right upper lobe and there were several enlarged right hilar and mediasti nal lymph nodes. The radiologist suggested the etiology is possible TB, fungal or neoplasm and less likely inflammatory. In terms of his deficits, the patient was not found to have any issue with his gait in terms of ambul ating 250 feet with a front wheel walker with standby to contact guard assistance. He did not have a ny ataxia as long as he was focusing on his ambulation. It was recommended that the patient may requ fidelina a shower chair at home and home health followup and continue with his physical therapy perhaps ou tpatient. Blood work revealed slightly elevated white blood cell count up to 11. Differential did show neutrop hils elevated at 81.7. Coagulation panel unremarkable. Chemistries show sodium 130, potassium 4.0, chloride 96, glucose 103, creatinine 0.89. Liver function studies unremarkable. Urinalysis unremark able. COVID-19 test negative. Influenza A and B negative. RSV negative. Past Medical History: Coronary artery disease, hypertension, gastroesophageal reflux disease, cardia c catheterization. Family History: Stroke in the mother. Social History: Smoked 1 to 2 packs of cigarettes for 40 years, and drinks 3 to 5 beers daily for ab out the same length of time. Denies illegal drug use. Medications: Currently, Norvasc 10 mg daily, aspirin 81 mg daily, Lipitor 40 mg at bedtime, Plavix 7 5 mg daily, Lovenox 40 mg subcutaneously daily, folic acid 1 mg daily, metoprolol 25 mg twice daily, patch and Zofran as needed. Review of Systems: As indicated. He has difficulty with his coordination, balance gait, although that is improving as h e did receive hydration and he has received aspirin in the hospital. Physical Examination: Vital Signs: Blood pressure 195/93, pulse 65, respiratory rate 18, temperature 98.3, and saturation 93%. Weight 150 pounds, height 5 feet 9 inches, BMI 22.2. General: Mr. Ivy is resting in bed. He is in no significant distress. He does have a cough that i s mildly productive. HEENT: He is, otherwise, normocephalic, atraumatic. Sclerae anicteric. Oropharynx is pink and mois t. Neck: Supple. Chest: Shows decreased breath sounds. Abdomen: Soft. Extremities: Some mild edema in the lower extremities, otherwise intact. Neurological: He is alert and oriented to situation, place, and person. He has no expressive or rec eptive aphasias. Cranial nerve are intact 2 through 12. Motor examination, he has symmetric strengt h in upper and lower extremities. His coordination despite the findings on the cerebellum are intact upper and lower extremities; and gait, he does have some tendency to drift to the right, but can be easily corrected with redirection. Reflexes depressed. Assessment: 1.Mr. Ivy is a 70-year-old patient with a right he does have lung masses which need to b e further evaluated. He has around a 50 pack-year history of cigarette smoking and chronic alcohol u se, which are likely contributing factors to his risk for stroke and his gait instability from the lo ngstanding alcohol use. 2.Hypertension, uncontrolled. Plan: 1.As noted. Aspirin, Plavix, statin, and blood pressure management. DVT prophylaxis. 2.Patient was strongly advised to stop smoking and drinking alcohol. 3.He may be discharged home with further workup of his lung mass by likely Pulmonology to rule out n eoplasm and perhaps TB as well since the patient does have a cough and that may actually require work up while in hospital and is appropriately treated in isolation and medications. 4.Once his acute issues have been addressed, he may be discharged and follow up in Dr. Daley's cl in 1 month later. ANA/CHAYO Voice ID: [id number] Report ID: [id number]
[2021-06-18] MEDS: METOPROLOL TAR 25 MG TAB PO SCH (05:45)
[2021-06-18 06:19] LABS: Hematocrit 41.6 % (39.6-49.0); Lymphocytes % 14.8 % (15.3-44.8); MPV 7.8 fL (7.6-11.3); RBC Red Blood Cell Count 4.75 M/uL (4.33-5.43)
[2021-06-18 06:54] LABS: ALT/SGPT 13 U/L (12-78); AST/SGOT 12 U/L (15-37); Albumin 2.7 g/dL (3.4-5.0); Alkaline Phosphatase 70 U/L (45-117); BUN Blood Urea Nitrogen 15 mg/dL (7-18); Bicarbonate 25 mmol/L (21-32); Glucose Level 82 mg/dL (74-106); HDL Cholesterol 67 mg/dL (40-60); LDL Cholesterol, Calculated 70 (<130); Magnesium 2.2 mg/dL (1.8-2.4); Potassium 3.4 mmol/L (3.5-5.1); Protein, Total 6.5 g/dL (6.4-8.2); Sodium Level 135 mmol/L (136-145); Thyroid Stimulating Hormone 0.234 uIU/mL (0.360-3.740)
--- NOTE | 2021-06-18 07:32 | ECHO ---
HEIGHT: 5 ft 9 in WEIGHT: 150 lb 0 oz DATE OF STUDY: 06/17/[address]: Santiago Saravia NP 2-DIMENSIONAL: YES M.MODE: YES DOPPLER: YES COLOR FLOW: YES TDS: PORTABLE: DEFINITY: BUBBLE STUDY: DIAGNOSIS: CARDIAC HISTORY: CATHERIZATION: NO SURGERY: NO PROSTHETIC VALVE: NO PACEMAKER: NO MEASUREMENTS (cm) DIASTOLIC (NORMALS) SYSTOLIC (NORMALS) IVSd 1.1 (0.6-1.2) LA Diam 3.0 (1.9-4.0) LVEF 59% LVIDd 4.3 (3.5-5.7) LVIDs 2.9 (2.0-3.5) %FS 31% LVPWd 1.2 (0.6-1.2) Ao Diam 3.6 (2.0-3.7) 2 DIMENSIONAL ASSESSMENT: RIGHT ATRIUM: NORMAL LEFT ATRIUM: NORMAL RIGHT VENTRICLE: NORMAL LEFT VENTRICLE: NORMAL TRICUSPID VALVE: MILD TRICUSPID REGURGITATION MITRAL VALVE: MILD MITRAL REGURGITATION PULMONIC VALVE: NORMAL AORTIC VALVE: MILD AORTIC INSUFFIENCY PERICARDIAL EFFUSION: NONE AORTIC ROOT: NORMAL LEFT VENTRICULAR WALL MOTION: NORMAL DOPPLER/COLOR FLOW: SEE BELOW COMMENTS: NORMAL LEFT VENTRICULAR EJECTION FRACTION 55-60%. NORMAL WALL MOTION. MILD TRICUSPID REGURGITATION. MILD MITRAL REGURGITATION, MILD AORTIC INSUFFIENCY. DIASTILIC DYSFUNCTION. TECHNOLOGIST: ANKIT MCKENZIE
[2021-06-18] MEDS ORDERED: AMLODIPINE 10 MG TAB PO SCH (09:00)
[2021-06-18] MEDS ORDERED: POTASSIUM 25 MEQ EFFERV TAB PO ONE (09:00)
[2021-06-18] MEDS: ASPIRIN EC 81 MG TAB PO SCH (11:06)
[2021-06-18] MEDS: FOLIC ACID 1 MG TABLET PO SCH (11:07)
[2021-06-18] MEDS: ENOXAPARIN 40 MG/0.4 ML SQ SCH (11:07)
[2021-06-18] MEDS: CLOPIDOGREL 75 MG TABLET PO SCH (11:07)
[2021-06-18 13:00] VITALS: TEMP 98; O2SAT 97
[2021-06-18 13:04] VITALS: BP 132/79
== END 2021-06-18 15:22 | disposition home or self-care (01) | DRG 65 ==
LOC: ER 20:32 → ERHOLD 06-17 02:56 → 2ND 06-17 10:13
PROVIDERS: ADMIT Hospitalist; ATTEND Hospitalist
DX: I63.9 Cerebral infarction, unspecified (principal); E87.1 Hypo-osmolality and hyponatremia; I25.10 Atherosclerotic heart disease of native coronary artery without angina pectoris; I10 Essential (primary) hypertension; K21.9 Gastro-esophageal reflux disease without esophagitis; F17.210 Nicotine dependence, cigarettes, uncomplicated; Z79.82 Long term (current) use of aspirin; Z86.73 Personal history of transient ischemic attack (TIA), and cerebral infarction without residual deficits; Z79.02 Long term (current) use of antithrombotics/antiplatelets; Z95.5 Presence of coronary angioplasty implant and graft; Z79.899 Other long term (current) drug therapy; Z60.2 Problems related to living alone; Z20.822 Contact with and (suspected) exposure to COVID-19
CPT/HCPCS: 0241U; 36415; 70450; 70496; 70498; 71045; 71250; 80048; 80053; 80061; 80076; 81003; 83690; 83735; 83880; 84439; 84443; 84484; 85025; 85610; 93005; 93306; 93880; 96374; 97116; 97161; 97530; 99284; J0360; J1650; J7030; J7040; Q9967

== ENCOUNTER 2022-05-10 18:36 | Emergency (ER) | payer OTHER ==
--- OUTSIDE RECORDS SUMMARY | 2022-05-10 18:39 | XMS REPORT | Continuity of Care Document ---
:1950 Author Organization [facility] t Address [address] [place] [address] Care Team Providers Name Role Phone PCP, PATIENT DOES NOT HAVE A Primary Care Physician UnavailLETICIA Mehta Attending Clinician Unavailable LETICIA DENT Attending Clinician Unavailable AMELIA ROSARIO Attending Clinician Unavailable AMELIA ROSARIO Attending Clinician Unavailable TREVIN ORNELAS Attending Clinician Unavailable Odin Yanez PTA Attending Clinician Unavailable Trevin Ornelas MD Attending Clinician Beth Luz PT Attending Clinician Unavailable Karen Garcia PTA Attending Clinician Unavailable Doctor Unassigned, [place] Attending Clinician Unavailable Payers Payer Name Policy Type Policy Number Effective Date Expiration Date [facility] [id number] 2001 00:00:00 Problems Condition Condition Condition Status Onset Resolution Last Treating Co mments Source Name Details Category Date Date Treatment Clinician Date Physical Physical Disease Active Unive rs deconditio deconditio - it y of n[place] n[place] 00:00[place] [facility] Poor Poor Disease Active Univers balance balance -14 ity of 00:00: [place] [facility] Pain in Pain in Disease Active Univers both lower both lower 12-19 [place] [address] Allergies, Adverse Reactions, Alerts Allergy Allergy Status Severity Reaction(s) Onset Inactive Treating Comm ents Source Name Type Date Date Clinician NO KNOWN Drug Active Univers ALLERGIE Class ity of [facility] Social History Social Habit Start Date Stop Date Quantity Comments Source Sex Assigned At [birth year] [facility] [place] 00:00:00 00:00:00 [facility] Smoking Status Start Date Stop Date Source Tobacco smoking consumption [facility] Medications This patient has no known medications. Procedures This patient has no known procedures. Encounters Start End Encounter Admission Attending Care Care Encounter Source Date/Time Date/Time Type Type Clinicians Facility Department ID 2022-05-15 2022-05-15 Outpatient R LETICIA DENT [facility] 10 [id number] Univers 11:30:00 11:30:00 LETICIA DENT i ty [facility] 2022-04-16 2022-04-16 Outpatient R AMELIA ROSARIO [facility] [id number] Univers 09:30:00 09:30:00 AMELIA ROSARIO yarelis [facility] 2022-02-11 2022-02-11 Outpatient Janet ORNELAS [facility] [id number] Univers 08:45:00 09:43:40 TREVIN del cid [facility] 2022-02-11 2022-02-11 Ancillary Odin Yanez [facility] 1.2.840. 114 [id number] Univers 08:45:00 09:43:40 Visit Trevin Ornelas [id number] [facility] [id number] [phone] Mi dical NAL 179 [facility] 2022-02-04 2022-02-04 Ancillary Odin Yanez [facility] 1.2.840. 114 [id number] Univers 08:45:00 09:30:00 Visit Trevin Ornelas [id number] [facility] [id number] [phone] Mi dical NAL 179 [facility] 2022-02-04 2022-02-04 Outpatient Janet ORNELAS [facility] [id number] Univers 08:45:00 08:45:00 TREVIN del cid [facility] 2022-01-28 2022-01-28 Ancillary Odin Yanez [facility] 1.2.840. 114 [id number] Univers 08:45:00 09:30:00 Visit Trevin Ornelas [id number] [id number] [phone] Mi dical NAL 179 [facility] 2022-01-21 2022-01-21 Ancillary Odin Yanez [facility] 1.2.840. 114 [id number] Univers 08:45:00 09:30:00 Visit Trevin Ornelas [id number] [id number] [phone] Mi dical NAL 179 [facility] 2022-01-14 2022-01-14 Ancillary Beth Luz [facility] 1.2.84 0.114 [id number] Univers 08:45:00 09:18:18 Visit Trevin Ornelas [id number] [id number] [phone] Mi dical NAL 179 [facility] 2021-12-31 2021-12-31 Outpatient R AMARA [facility] [id number] Univers 08:45:00 09:11:45 TREVIN ity of [facility] 2021-12-31 2021-12-31 Ancillary Karen Garcia [facility] 1.2. 840.114 [id number] Univers 08:45:00 09:11:45 Visit Trevin Ornelas [id number] [id number] [phone] Mi dical NAL 179 [facility] 2021-12-24 2021-12-24 Ancillary Karen Garcia [facility] 1.2. 840.114 [id number] Univers 08:45:00 09:27:42 Visit Trevin Ornelas [id number] [id number] [phone] Mi dical NAL 179 [facility] 2021-12-24 2021-12-24 Orders Doctor AGUAYO [id number] Univers 00:00:00 00:00:00 Only Unassigned, [place] [id number] ity of [place] [facility] [id number] [place] as [phone] [place] [id number] [place] 2021-12-18 2021-12-18 Ancillary Beth Luz [facility] 1.2.84 0.114 [id number] [facility] 10:15:00 10:51:56 Visit Trevin Ornelas [id number] [id number] [phone] Mi dical NAL 179 [place] BUILDING Results This patient has no known results.
--- NOTE | 2022-05-10 19:07 | EDPHYS ---
Physician Documentation [facility] Jonathan Name: Jose Ivy Sr Age: 71 yrs Sex: Male : 1950 Arrival Date: 05/10/2022 Time: 18:47 Bed 13 Private MD: ED Physician Nikhil Fontana HPI: 05/10 18:55 This 71 yrs old Male presents to ER via Unassigned with complaints of sob, sundeep fall hypoxia. 18:55 The patient has shortness of breath at rest, with light activity. Onset: The sundeep symptoms/episode began/occurred 2 day(s) ago. Duration: The symptoms are continuous, and are steadily getting worse. The patient's shortness of breath is aggravated by nothing, is alleviated by nebulizer treatment, sitting up, application of supplemental oxygen. The patient or guardian reports cough, difficulty breathing. Modifying factors: The symptoms are alleviated by elevating head, the symptoms are aggravated by activity. Associated signs and symptoms: Pertinent positives: productive cough. Severity of symptoms: At their worst the symptoms were moderate in the emergency department the symptoms are unchanged. Associated signs and symptoms: Pertinent positives: sore throat. Historical: - PMHx: 19:22 CVA; heart disease; Chronic obstructive lung disease; lung disease; db - PSHx: 19:22 cardiac stent; db - Immunization history:: Adult Immunizations unknown, Client reports receiving the 2nd dose of the Covid vaccine. - Social history:: Smoking status: Patient reports the use of cigarette tobacco products. - Immunization history: Last tetanus immunization: unknown. - Family history:: not pertinent. ROS: 18:56 Eyes: Negative for injury, pain, redness, and discharge, Back: Negative for injury and sundeep pain, Neuro: Negative for headache, weakness, numbness, tingling, and seizure. 18:56 Constitutional: Positive for chills, fatigue, fever, malaise. 18:56 Cardiovascular: Positive for palpitations. 18:56 Respiratory: Positive for cough, "sounds productive", dyspnea on exertion, shortness of breath, at rest. wheezing, inspiratory, expiratory. 18:56 MS/extremity: Positive for swelling, of the right leg and left leg. 18:56 Neuro: Positive for weakness. Exam: 18:56 Head/Face: Normocephalic, atraumatic. Eyes: Pupils equal round and reactive to light, sundeep extra-ocular motions intact. Lids and lashes normal. Conjunctiva and sclera are non-icteric and not injected. Cornea within normal limits. Periorbital areas with no swelling, redness, or edema. Chest/axilla: Normal chest wall appearance and motion. Nontender with no deformity. No lesions are appreciated. Male : Normal genitalia with no discharge or lesions. Neuro: Awake and alert, GCS 15, oriented to person, place, time, and situation. Cranial nerves II-XII grossly intact. Motor strength 5/5 in all extremities. Sensory grossly intact. Cerebellar exam normal. Normal gait. Psych: Awake, alert, with orientation to person, place and time. Behavior, mood, and affect are within normal limits. 18:56 Constitutional: The patient appears in obvious distress, mildly distressed. 18:56 Cardiovascular: Rate: tachycardic, actual rate is 101 bpm. 18:56 Respiratory: mild respiratory distress is noted, Respirations: labored breathing, that is mild, Breath sounds: decreased breath sounds, that are moderate, are located in both bases, rhonchi, that are moderate, are scattered, stridor, is not appreciated, + upper airway congestion. wheezing: expiratory is heard diffusely. 18:56 Neuro: Orientation: is normal, appropriate for stated age, no acute changes, Mentation: appropriate for stated age, no acute changes, Memory: no acute changes, Cranial nerves: is grossly normal based on the patient's age, no acute changes, Cerebellar function: is grossly normal based on the patient's age, no acute changes, Motor: moves all fours, strength is 5/5 in all extremities, Gait: not tested. seizure activity, is not displayed by the patient. 19:08 ECG was reviewed by the Attending Physician. [facility] Vital Signs: 18:38 BP 179 / 89; Pulse 101; Resp 28; Temp 98(O); Pulse Ox 72% on 4 lpm NC; Weight 54.43 kg; db Height 5 ft. 10 in. (177.80 cm); Pain 8/10; 21:09 BP 156 / 82; Pulse 83; Resp 24; Temp 97.2(A); Pulse Ox 100% on BiPAP; Pain 0/10; ke1 18:38 Body Mass Index 17.22 (54.43 kg, 177.80 cm) db 21:09 IPAP 14 EPAP 6 R14 $% % ke1 [place] Coma Score: 19:25 Eye Response: spontaneous(4). Verbal Response: oriented(5). Motor Response: obeys db commands(6). Total: 15. Trauma Score (Adult): 19:25 Eye Response: spontaneous(1); Verbal Response: oriented(1); Motor Response: obeys db commands(2); Systolic BP: > 89 mm Hg(4); Respiratory Rate: 10 to 29 per min(4); [place] Score: 15; Trauma Score: 12 MDM: 18:48 Patient medically screened. [facility] 19:07 Differential diagnosis: asthma, Bronchitis CHF exacerbation, Chronic Obstructive sundeep Pulmonary Disease obstructed airway, bronchitis, flu, URI, pneumonia, Pneumothorax pulmonary edema, reactive airway disease, Sepsis Unstable Angina. Antibiotic administration: ZOSYN. The patient's Wells Deep Vein Thrombosis Score was calculated as follows: Heart Rate >100 BPM (1.5 Pts) Total Score: 0-2 Pts- Low Risk. The patient's pulmonary embolism risk score was calculated as follows: Total Score: 0-2 points. This patient was found to be at low risk for a pulmonary embolism by using the Well's assessment criteria. Immunization status: Pneumococcal vaccine: Influenza vaccine: Data reviewed: vital signs, nurses notes, EMS record, lab test result(s), EKG, radiologic studies, CT scan, plain films. Data interpreted: gambling monitor: rate is 110 beats/min, Pulse oximetry: on room air is 84 %. Test interpretation: by ED physician or midlevel provider: ECG, plain radiologic studies. 21:08 ED course: Doc to doc with Dr Jennings completed and he accepts patent.. ms3 05/10 18:50 Order name: Basic Metabolic Panel; Complete Time: 21:05 [facility] 05/10 18:50 Order name: CBC with Diff; Complete Time: 21:05 [facility] 05/10 18:50 Order name: LFT's; Complete Time: 21:05 [facility] 05/10 18:50 Order name: Magnesium; Complete Time: 21:05 [facility] 05/10 18:50 Order name: NT PRO-BNP; Complete Time: 21:05 [facility] 05/10 18:50 Order name: PT-INR; Complete Time: 19:48 [facility] 05/10 18:50 Order name: Troponin HS; Complete Time: 21:05 [facility] 05/10 18:50 Order name: XRAY Chest (1 view) [facility] 05/10 18:50 Order name: ABG; Complete Time: 19:48 [facility] 05/10 18:50 Order name: Blood Culture Adult (2) [facility] 05/10 18:50 Order name: Lactate w/ 2H reflex if indic.; Complete Time: 19:48 [facility] 05/10 18:50 Order name: COVID-19/FLU A+B; Complete Time: 21:05 [facility] 05/10 18:50 Order name: CT Traumagram (Head C Spine CAP wo con) [facility] 05/10 20:59 Order name: CBC Smear Scan; Complete Time: 21:05 [facility] 05/10 18:50 Order name: EKG; Complete Time: 18:51 [facility] 05/10 18:50 Order name: Cardiac monitoring; Complete Time: 18:52 [facility] 05/10 18:50 Order name: EKG - Nurse/Tech; Complete Time: 18:51 [facility] 05/10 18:50 Order name: IV Saline Lock; Complete Time: 19:10 [facility] 05/10 18:50 Order name: Labs collected and sent; Complete Time: 19:10 [facility] 05/10 18:50 Order name: O2 Per Protocol; Complete Time: 18:52 [facility] 05/10 18:50 Order name: O2 Sat Monitoring; Complete Time: 18:52 [facility] 05/10 18:50 Order name: IV Saline Lock - Large Bore; Complete Time: 19:10 [facility] EC:08 Rate is 80 beats/min. Rhythm is regular. QRS [place] is Normal. HI interval is normal. QRS sundeep interval is normal. QT interval is normal. No Q waves. T waves are Normal. No ST changes noted. Clinical impression: NSR w/ Non-specific ST/T Changes and No evidence of ischemia. Interpreted by me. Reviewed by me. Administered Medications: 19:49 CANCELLED (Duplicate Order): NS 0.9% 1000 ml IV at 1 bolus Per protocol; 1000 mL bolus [facility] 19:54 Drug: Pepcid (famotidine) 20 mg Route: IVP; Site: right antecubital; ke1 19:55 Drug: SOLU-Medrol (methylPrednisoLONE) 125 mg Route: IVP; Site: right antecubital; ke1 20:00 Drug: Xopenex (levalbuterol) 3.75 mg Route: Inhalation; ke1 20:00 Drug: AtroVENT (ipratropium) Aerosol 0.5 mg Route: Inhalation; ke1 20:00 Drug: Zosyn (piperacillin-tazobactam) 3.375 grams Route: IVPB; Infused Over: 60 mins; ke1 Site: right antecubital; 20:25 Drug: Zithromax (azithromycin) 500 mg Route: IVPB; Infused Over: 1 hrs; Site: left ke1 antecubital; 20:30 Drug: NS 0.9% 500 ml Route: IV; Rate: bolus; Site: right antecubital; ke1 21:20 Drug: Magnesium Sulfate 2 grams Route: IVPB; Infused Over: 2 hrs; Site: left ke1 antecubital; Disposition Summary: 05/10/22 19:06 Transfer Ordered Transfer Location: [facility] sundeep Reason: Higher level of care sundeep Condition: Fair sundeep Problem: new sundeep Symptoms: have improved sundeep Accepting Physician: Dr Gunter(05/10/22 22:40) tw5 Diagnosis - COPD/ Chronic obstructive pulmonary disease with (acute) exacerbation sundeep - Acute respiratory failure with hypoxia sundeep - Acute respiratory failure with hypercapnia sundeep - Pneumonia due to other specified bacteria - BILATERAL UPPER LOBE PNEUMONIA sundeep - Elevated white blood cell count sundeep - Unspecified kidney failure sundeep - Hyperkalemia sundeep - Non ST elevation AL sundeep Forms: - Medication Reconciliation Form sundeep - SBAR form sundeep Signatures: Dispatcher [employer] EDNikhil Santo MD MD cha Sims, Marcus, DO DO ms3 Kitty Nettles tw5 Praveen Longoria RN RN ke1 [address]asa [address] RN RN db Corrections: (The following items were deleted from the chart) 18:54 18:51 BiPap ([employer] Only)+[id number].RAD.BRZ ordered. EDKY EDMS 19:21 [facility] sundeep 19:26 [facility]:21 [facility] sundeep 19:49 19:21 NS 0.9% 1000 ml IV at 1 bolus Per protocol; 1000 mL bolus ordered. sundeep sundeep 19:49 19:26 [facility] sundeep 21:09 19:49 [facility] ms3 22:40 21:09 Dr Gunter ms3 tw5
--- NOTE | 2022-05-10 19:07 | ER ---
Nurse's Notes [facility] Jonathan Name: Jose Ivy Sr Age: 71 yrs Sex: Male : 1950 Arrival Date: 05/10/2022 Time: 18:47 Bed 13 Private MD: Diagnosis: COPD/ Chronic obstructive pulmonary disease with (acute) exacerbation;Acute respiratory failure with hypoxia;Acute respiratory failure with hypercapnia;Pneumonia due to other specified bacteria-BILATERAL UPPER LOBE PNEUMONIA;Elevated white blood cell count;Unspecified kidney failure;Hyperkalemia;Non ST elevation [place] Presentation: 05/10 18:38 Chief complaint: EMS states: Patient came in by EMS after fall hurt right hand and db right wrist. also noted skin tear to right ribs. Patient with abdominal retractions. Received Albuterol treatment x 2 by EMS. on NC 4L O2 saturation was 72% upon arrival. hx of lung disease, COPD. Coronavirus screen: Vaccine status: Patient reports receiving the 2nd dose of the covid vaccine. Client denies travel out of the [place] in the last 14 days. At this time, the client does not indicate any symptoms associated with coronavirus-19. Ebola Screen: Patient negative for fever greater than or equal to 101.5 degrees Fahrenheit, and additional compatible Ebola Virus Disease symptoms Patient denies exposure to infectious person. Patient denies travel to an Ebola-affected area in the 21 days before illness onset. No symptoms or risks identified at this time. Initial Sepsis Screen: Does the patient meet any 2 criteria? RR > 20 per min. HR > 90 bpm. Yes Does the patient have a suspected source of infection? No. Patient's initial sepsis screen is negative. Risk Assessment: Do you want to hurt yourself or someone else? Patient reports no desire to harm self or others. Onset of symptoms was May 10, 2022. Care prior to arrival: Medication(s) given: Albuterol Neb x 2. 18:38 Method Of Arrival: : [facility] db 18:38 Acuity: EDEN 2 db Triage Assessment: 19:22 General: Appears distressed, uncomfortable, slender, Behavior is cooperative, db appropriate for age, anxious. Pain: Complains of pain in right ribs, right arm right wrist Pain began suddenly. EENT: No deficits noted. No signs and/or symptoms were reported regarding the EENT system. Neuro: No deficits noted. Level of Consciousness is awake, alert, obeys commands, Oriented to person, place, time, situation, Appropriate for age Moves all extremities. Speech is normal, Pupils are PERRLA. Cardiovascular: Denies chest pain, Patient's skin is warm and dry. Respiratory: Airway is patent Respiratory effort is even, labored, with retractions, abdominal retractions noted Respiratory pattern is regular, symmetrical, Breath sounds are coarse bilaterally. the patient has severe shortness of breath. GI: No deficits noted. No signs and/or symptoms were reported involving the gastrointestinal system. : No deficits noted. No signs and/or symptoms were reported regarding the genitourinary system. Derm: Wound noted right arm. Musculoskeletal: No deficits noted. No signs and/or symptoms reported regarding the musculoskeletal system. Historical: - PMHx: 19:22 CVA; heart disease; Chronic obstructive lung disease; lung disease; db - PSHx: 19: cardiac stent; db - Immunization history:: Adult Immunizations unknown, Client reports receiving the 2nd dose of the Covid vaccine. - Social history:: Smoking status: Patient reports the use of cigarette tobacco products. - Immunization history: Last tetanus immunization: unknown. - Family history:: not pertinent. Screenin:25 Abuse screen: Denies threats or abuse. Denies injuries from another. Tuberculosis db screening: No symptoms or risk factors identified. Primary Survey: 19:25 NO uncontrolled hemorrhage observed. Breathing/Chest: Respiratory effort: labored, db Breath sounds: coarse, bilaterally. Respiratory pattern: regular, Chest inspection: symmetrical rise and fall of the chest. Circulation: No external hemorrhage present. Regular and strong central pulse, skin warm/dry/normal color. Skin color: pink. Disability Pupils are equal, round, reactive to light and accommodation. Client is alert. Exposure/Environment: A warming method has been applied: A warm blanket has been provided to the patient. Reassessment. Secondary Survey: 19:00 HEENT: Head No injury/deformity Face No injury/deformity. ke1 21:36 Gastrointestinal: Abdomen is soft, flat, Bowel sounds present in all quadrants. ke1 Musculoskeletal: No deficits noted. Capillary refill < 3 seconds, Range of motion: intact in all extremities. Injury Description: Skin tears sustained to RLQ on the side. Vital Signs: 18:38 BP 179 / 89; Pulse 101; Resp 28; Temp 98(O); Pulse Ox 72% on 4 lpm NC; Weight 54.43 kg; db Height 5 ft. 10 in. (177.80 cm); Pain 8/10; 21:09 BP 156 / 82; Pulse 83; Resp 24; Temp 97.2(A); Pulse Ox 100% on BiPAP; Pain 0/10; ke1 18:38 Body Mass Index 17.22 (54.43 kg, 177.80 cm) db 21:09 IPAP 14 EPAP 6 R14 $% % ke1 Avril Coma Score: 19:25 Eye Response: spontaneous(4). Verbal Response: oriented(5). Motor Response: obeys db commands(6). Total: 15. Trauma Score (Adult): 19:25 Eye Response: spontaneous(1); Verbal Response: oriented(1); Motor Response: obeys db commands(2); Systolic BP: > 89 mm Hg(4); Respiratory Rate: 10 to 29 per min(4); Avril Score: 15; Trauma Score: 12 ED Course: 18:40 Oxygen administration via non-rebreather mask \T\ 15L/min Response to oxygen therapy: db symptoms improved. 18:47 Patient arrived in ED. sb4 18:47 Nikhil Fontana MD is Attending Physician. [facility] [place] 18:58 Initial lab(s) drawn, First set of blood cultures drawn by pa. Inserted saline lock: 20 db gauge in left antecubital area, using aseptic technique. Blood collected. 19:01 Praveen Longoria, RN is Primary Nurse. ke1 19:03 Patient has correct armband on for positive identification. Bed in low position. Call mm9 light in reach. Side rails up X 1. Warm blanket given. transport aircrewman on. Pulse ox on. NIBP on. 19:03 EKG done, by ED staff, reviewed by Nikhil Fontana MD. mm9 19:22 Triage completed. db 19:28 initiated a transfer with [facility]. mw2 19:35 faxed over patient clinicals to the CT. mw2 19:43 XRAY Chest (1 view) In Process Unspecified. EDMS 19:43 CT Traumagram (Head C Spine CAP wo con) In Process Unspecified. EDMS 19:45 Inserted saline lock: 22 gauge in right antecubital area, using aseptic technique. ke1 20:50 faxed over covid/flu results to the CT. mw2 21:[address] Wadsworth with the ER Doctor from [facility]. 2 21:10 administrative approval given by Estrellita Rome/ patient has been accepted to [address]/ Dr. Castro accepted the patient in transfer/report to be called to [phone]. Administered Medications: 19:49 CANCELLED (Duplicate Order): NS 0.9% 1000 ml IV at 1 bolus Per protocol; 1000 mL bolus [facility] 19:54 Drug: Pepcid (famotidine) 20 mg Route: IVP; Site: right antecubital; ke1 19:55 Drug: SOLU-Medrol (methylPrednisoLONE) 125 mg Route: IVP; Site: right antecubital; ke1 20:00 Drug: Xopenex (levalbuterol) 3.75 mg Route: Inhalation; ke1 20:00 Drug: AtroVENT (ipratropium) Aerosol 0.5 mg Route: Inhalation; ke1 20:00 Drug: Zosyn (piperacillin-tazobactam) 3.375 grams Route: IVPB; Infused Over: 60 mins; ke1 Site: right antecubital; 20:25 Drug: Zithromax (azithromycin) 500 mg Route: IVPB; Infused Over: 1 hrs; Site: left ke1 antecubital; 20:30 Drug: NS 0.9% 500 ml Route: IV; Rate: bolus; Site: right antecubital; ke1 21:20 Drug: Magnesium Sulfate 2 grams Route: IVPB; Infused Over: 2 hrs; Site: left ke1 antecubital; Outcome: 19:06 ER care complete, transfer ordered by . [facility] 22:40 Patient left the ED. tw5 Addendum: 05/13/2022 09:59 Addendum: Culture Results: Positive blood culture. contacted [facility], attempted to b d fax the report to the unit where the pt is, spoke with the charge nurse, was informed that they have no fax number and is unaware of how i can get them the culture report. I gave the charge nurse the number to the er nurses station and told her to have the dr who is seeing the pt call us if he would like to have the results of the blood culture. Signatures: Dispatcher [employer] EDMS Qian Dumont Corey, MD MD cha Westbrook, Yousuf mw2 Kitty Nettles tw5 Praveen Longoria RN RN ke1 [address] RN Albina Oneal, PAWilmerC PALino [email or web address] Marissa Brenner mm9 Corrections: (The following items were deleted from the chart) 05/10 21:54 21:09 BP 156 / 82; Pulse 83bpm; Resp 24bpm; Pulse Ox 100% BiPAP; Temp 97.2F Axillary; ke1 Pain 0/10; ke1
[2022-05-10 19:09] LABS: Arterial Blood Carboxyhemoglob 2.6 % (0-1.5); Blood O2 Saturation 96.7 % (92-98.5)
[2022-05-10 19:17] LABS: Absolute Lymphocytes (CBC) 1.1 K/uL (0.7-4.9); Hematocrit 34.4 % (39.6-49.0); Lymphocytes % 2.9 % (15.3-44.8); MCV 83.2 fL (80-100); MPV 8.8 fL (7.6-11.3); Protime INR 1.16; RBC Red Blood Cell Count 4.13 M/uL (4.33-5.43)
[2022-05-10] MEDS ORDERED: LEVALBUTEROL 1.25 MG/3 ML NEB ONE (19:19)
[2022-05-10] MEDS ORDERED: METHYLPREDNISOLONE 125 MG INJ ONE (19:19)
[2022-05-10] MEDS ORDERED: IPRATROPIUM BROM 0.5MG/2.5ML ONE (19:19)
[2022-05-10] MEDS ORDERED: NA CHLORIDE 0.9% 100 ML IV ONE (19:19)
[2022-05-10] MEDS ORDERED: FAMOTIDINE 20 MG/2 ML VIAL IV ONE (19:20)
[2022-05-10] MEDS ORDERED: PIPERACIL/TAZO 3.375 GM VIAL IV ONE (19:20)
[2022-05-10] MEDS ORDERED: Magnesium Sulfate 2gm IVPB 2 G/50 ML BAG IV ONE (19:20)
[2022-05-10 19:40] LABS: Albumin 2.5 g/dL (3.4-5.0); Bilirubin Direct 0.2 mg/dL (0-0.2); Bilirubin Total 0.5 mg/dL (0.2-1.0); Magnesium 2.2 mg/dL (1.8-2.4); Potassium 5.3 mmol/L (3.5-5.1); Protein, Total 7.1 g/dL (6.4-8.2)
[2022-05-10 19:43] LABS: Troponin High Sensitivity 2076.3 pg/mL (<58.9)
[2022-05-10] MEDS ORDERED: AZITHROMYCIN 500 MG INJ IVPB ONE (20:13)
[2022-05-10] MEDS ORDERED: NA CHLORIDE 0.9% 250 ML ONE (20:14)
[2022-05-10 20:36] LABS: SARS-COV-2 RT PCR NEGATIVE (NEGATIVE)
[2022-05-10] MEDS ORDERED: NA CHLORIDE 0.9% 500 ML ONE (20:54)
[2022-05-10 20:59] LABS: Blood Morphology Comment NOT SEEN (NOT SEEN); Platelet Estimate ADEQ; White Blood Cell Scan OK (OK)
--- NOTE | 2022-05-10 21:12 | RAD REPORT ---
EXAM DESCRIPTION: CT - Head C Spine Cap Wo Con - 05/10/2022 8:45 pm CLINICAL HISTORY: Head and neck injury with chest and abdominal pain status post fall TECHNIQUE: Computed axial tomography of head, neck, chest, abdomen and pelvis obtained. IV and oral contrast not requested. Coronal and sagittal reconstruction performed. All CT scans are performed using dose optimization technique as appropriate and may include automated exposure control or mA/KV adjustment according to patient size. COMPARISON: June 2021 head and chest FINDINGS: An intracranial bleed is not seen. A 4 centimeter low-density area right cerebellum probably old infa rction. The ventricles are normal in caliber. An extra-axial fluid collection is not noted. . Fluid within the sinuses/mastoids is not seen. Chronic sinusitis Images of the cervical spine are suboptimal secondary to patient motion artifact. A cervical fracture is not seen. No dislocation is noted. The evaluation of mediastinum, elliot, vessels, solid organs and bowel are limited secondary to the lac k of contrast administration. A mediastinal hematoma is not noted. A pleural effusion is not seen. A lung contusion is not present. 4.7 centimeter cavitary mass right upper lobe without significant change. Moderate to marked alveolar opacities left upper lobe. Mild left lower lobe opacities. Moderate pericardial effusion The liver,spleen, pancreas, adrenals,kidneys and bladder do not demonstrate an acute traumatic injury IMPRESSION: No acute intracranial abnormality is seen. No gross cervical fracture. If the patient continues have symptoms to suggest intracranial/spinal cor d pathology MRI be recommended No acute traumatic abnormality involving the chest/abdomen/pelvis. Moderate pericardial effusion [id number] alveolar opacities left upper lobe probably pneumonia Stable 4.7 centimeter cavitary mass right upper lobe
--- NOTE | 2022-05-10 21:21 | RAD REPORT ---
EXAM DESCRIPTION: Porsha Single View05/10/2022 7:41 pm CLINICAL HISTORY: sob COMPARISON: June 2021 FINDINGS: 4.7 centimeter cavitary lesion right upper lobe without obvious change Development of moderate to marked alveolar opacities left upper lobe COPD. Left pleural thickening. Heart is normal size IMPRESSION: Moderate to marked alveolar opacities left upper lobe probably pneumonia Stable 4.7 centimeter cavitary mass right upper lobe
[2022-05-10 23:16] VITALS: BP 156/82; TEMP 97.2; O2SAT 100
--- NOTE | 2022-05-12 13:50 | EKG ---
Test Date: 2022-05-10 Test Time: 19:00:04 Plant And Maintenance Technician: MARK MEASUREMENT RESULTS: Intervals: Rate: 80 SD: QRSD: 78 QT: 374 QTc: 431 [place]: P: SD: QRS: 68 T: 81 INTERPRETIVE STATEMENTS: Atrial fibrillation Electronically Signed On 05-12-22 13:49:11 DECALER by Malick Santiago
== END 2022-05-10 22:40 ==
LOC: ER 18:36
DX: J96.01 Acute respiratory failure with hypoxia (principal); J96.02 Acute respiratory failure with hypercapnia; J15.8 Pneumonia due to other specified bacteria; J44.1 Chronic obstructive pulmonary disease with (acute) exacerbation; I21.4 Non-ST elevation (NSTEMI) myocardial infarction; E87.5 Hyperkalemia; D72.829 Elevated white blood cell count, unspecified; N19 Unspecified kidney failure; Z95.818 Presence of other cardiac implants and grafts; Z72.0 Tobacco use; Z20.822 Contact with and (suspected) exposure to COVID-19
CPT/HCPCS: 93005; 87040 ×2; 85025; 80048; 36415; 83735; 87205 ×3; 85610; 80076; 83605; 87077 ×2; 87186 ×2; 84484; 83880; 0240U; 70450; 71250; 72125; 71045; 82805; 94660; 99285; J7614; J2543; J7644; J0456; J3475; J7050; J7040; J2930